=== PATIENT | female | born 1965 | race Caucasian/White ===

== ENCOUNTER 2018-12-01 07:56 | Day surgery (SDC) | payer BC ==
[2018-12-01] MEDS ORDERED: CEFAZOLIN 2 GM/50 ML (PMX) 50 ML IVPB (10:00)
[2018-12-01] MEDS ORDERED: PROPOFOL 20 ML ×2 (10:46→12:20)
[2018-12-01] MEDS ORDERED: LIDOCAINE 2% (SDV) 5 ML INJ (10:46)
[2018-12-01] MEDS ORDERED: MIDAZOLAM 1 MG/ML 2 ML INJ ×2 (10:46→12:22)
[2018-12-01] MEDS ORDERED: FENTAnyl 50 MCG/ML VIAL ×2 (10:48→12:22)
[2018-12-01] MEDS ORDERED: EPHEDrine 25 MG/5 ML SYG (10:59)
[2018-12-01] MEDS ORDERED: CEFAZOLIN 1 GM INJ (12:20)
[2018-12-01] MEDS ORDERED: GLYCOPYRROLATE 0.4 MG INJ ×2 (12:20→13:17)
[2018-12-01] MEDS ORDERED: ROCURONIUM 50 MG INJ (12:20)
[2018-12-01] MEDS ORDERED: NEOSTIGMINE 3 MG/3 ML SYRINGE ×2 (12:20→13:17)
[2018-12-01] MEDS ORDERED: DEXAMETHASONE 4 MG/ML 5 ML INJ (12:22)
[2018-12-01] MEDS ORDERED: ONDANSETRON 4 MG INJ (12:22)
[2018-12-01] MEDS ORDERED: DIPHENHYDRAMINE 50 MG INJ IV (12:30)
[2018-12-01] MEDS ORDERED: hydrALAzine 20 MG INJ IV (12:30)
[2018-12-01] MEDS ORDERED: MEPERIDINE 25 MG INJ IV (12:30)
[2018-12-01] MEDS ORDERED: EPHEDrine 25 MG/5 ML SYG IV (12:30)
[2018-12-01] MEDS ORDERED: TRIMETHOBENZAMIDE 100 MG/ML VIAL IM (12:30)
[2018-12-01] MEDS ORDERED: ALBUTEROL 0.083% (NEB) 2.5 MG/3 ML AMP HHN (12:30)
[2018-12-01] MEDS ORDERED: LABETALOL HCL 20MG INJ IV (12:30)
[2018-12-01] MEDS ORDERED: ONDANSETRON 4 MG INJ IV ×2 (12:30→14:00)
[2018-12-01] MEDS ORDERED: MIDAZOLAM 1 MG/ML 2 ML INJ IV (12:30)
[2018-12-01] MEDS ORDERED: IPRATROPIUM (NEB) 0.5 MG/2.5 ML AMP HHN (12:30)
[2018-12-01] MEDS ORDERED: OXYCODONE/ACETAMINOPHEN (5/325) TAB PO ×2 (12:30)
[2018-12-01] MEDS ORDERED: FENTAnyl 50 MCG/ML VIAL IV ×3 (12:30)
[2018-12-01] MEDS ORDERED: HYDROmorphONE 1 MG/5 ML IV SYRINGE IV ×3 (12:30)
[2018-12-01] MEDS: BUPIVACAINE 0.25%/EPI (SDV) 10 ML INJ (12:52)
[2018-12-01] MEDS ORDERED: IBUPROFEN 600 MG TAB PO (14:00)
[2018-12-01] MEDS ORDERED: KETOROLAC 30 MG INJ IV (14:00)
[2018-12-01] MEDS ORDERED: SOD CHLORIDE 0.9% 1,000 ML IV (14:00)
== END 2018-12-01 15:51 | disposition home or self-care (01) ==
LOC: SDS 07:56
DX: N60.92 Unspecified benign mammary dysplasia of left breast (principal); N60.12 Diffuse cystic mastopathy of left breast; N60.22 Fibroadenosis of left breast
CPT/HCPCS: 19101; 88307